=== PATIENT | male | born 1940 | race Asian ===

== ENCOUNTER 2022-01-31 21:27 | Emergency (ER) | payer OTHER ==
[2022-01-31 21:42] VITALS: BP 135/84; PULSE 86; TEMP 98.5; BMI 16.1
[2022-01-31] MEDS ORDERED: ACETAMINOPHEN 325 MG TABLET (FP) PO ONE (23:02)
[2022-01-31 23:14] LABS: EPI CELLS 5 /uL (0-25.1); HYALINE CASTS 2 /uL (0-3.1); URINE APPEARANCE CLEAR; URINE BACTERIA 0 /uL (0-1359); URINE BILIRUBIN NEGATIVE (NEGATIVE); URINE COLOR YELLOW; URINE GLUCOSE (UA) 3+ (NEGATIVE); URINE KETONE NEGATIVE (NEGATIVE); URINE LEUK ESTERASE NEGATIVE (NEGATIVE); URINE NITRITE NEGATIVE (NEGATIVE); URINE PROTEIN 1+ (NEGATIVE); URINE RBC 22 /uL (0-23.9); URINE WBC 7 /uL (0-25.8)
[2022-01-31] MEDS ORDERED: ACETAMINOPHEN 325 MG TABLET (FP) ONE (23:25)
== END 2022-02-01 00:14 | disposition home or self-care (01) ==
LOC: JER 21:27
DX: R33.9 Retention of urine, unspecified (principal)
CPT/HCPCS: 81003; 82962; 87086; 93005; 93010; 99285-25